=== PATIENT | male | born 1955 | race Caucasian/White ===

== ENCOUNTER → 2018-09-10 | Day surgery (SDC) | payer MEDICARE ==
--- NOTE | 2018-09-09 14:53 | Diagnostic Imaging Report ---
EXAMINATION: CHEST 2 VIEWS INDICATION: Preop. History of asthma. Surgery on ear ^PRE ADMIT COMPARISON: None FINDINGS: TUBES and LINES: None. LUNGS: Likely minimal scarring/atelectasis in the left lower lung. There is no evidence of pneumonia or pulmonary edema. PLEURA: No pleural effusion or pneumothorax. HEART AND MEDIASTINUM: The cardiomediastinal silhouette is unremarkable. BONES AND SOFT TISSUES: No acute osseous lesion. Soft tissues are unremarkable. UPPER ABDOMEN: No free air under the diaphragm. IMPRESSION: Likely minimal scarring/atelectasis in the left lower lung. There is no evidence of pneumonia or pulmonary edema Signed by: Dr. Ricardo Nunez M.D. on 09/09/2018 2:49 PM
[~2018-09-10] MED LIST: DEXAMETHASONE INJ ONE; DEXAMETHASONE SOD PHOS INJ 4 MG/ML VIAL ONE; EPHEDRINE SULFATE INJ 50 MG/10 ML SYR ONE; FENTANYL CITRATE/PF 100MCG/2 ML INJ ONE; FLECAINIDE ACE100 MG PO; HYZAAR 100-12.1 EACH; LEXAPRO10 MG PO; LIDOCAINE HCL 2% LOCAL INJ 5 ML SDV VIAL INJ ONE; ONDANSETRON HCL INJ 2MG/ML 2ML 2 MG/ML VIAL ONE; PRO AIR INHALER; PROCARDIA XL60 MG; PROPOFOL IV EMULSION 10 MG/ML 20 ML VIAL ONE; SEVOFLURANE INHAL SOLN 250 ML PEN BTL ONE; SIMVASTATIN40 MG PO; TRAZADONE HCL PO
--- NOTE | 2018-09-10 05:49 | Pre Op History & Physical ---
DATE OF SURGERY: September 10, 2018. CHIEF COMPLAINT: Right-sided tinnitus with sound distortion with Meniere's disease. HISTORY OF PRESENT ILLNESS: This 63-year-old male has tinnitus bilaterally, worse on the right side with aural fullness. This has been going on for 20 years. The patient has acute flare of his Meniere's disease about 5-6 times a year. The patient claimed that his hearing is down on the right side. He also complained of distortion of sound. 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 The patient has been seen by myself and another otolaryngologists in [place]. He is being treated with diet restriction of salt and also Maxzide with no improvement of the condition. An audiogram that was done in June of this year showed the patient has mild high-frequency sensorineural hearing loss in the left side with moderate sensorineural hearing loss on the right with speech discrimination of 100% bilaterally. The patient had an MRI of the skull base, which show no intracranial abnormality. His IAC was negative. REVIEW OF SYSTEMS: Showed no recent cardiovascular, respiratory, or GI problem. PAST MEDICAL HISTORY: The patient has a history of hypertension. The patient has a history of asthma and cardiac arrhythmias. PAST SURGICAL HISTORY: The patient has previous endoscopic sinus surgery, cholecystectomy, and cardiac ablation. ALLERGIES: HE HAS NO KNOWN ALLERGIES. MEDICATIONS: He is on Pro-Air, Lexapro, trazodone, aspirin, simvastatin, Phenergan, and losartan-HCTZ. SOCIAL HISTORY: He is nonsmoker and social drinker. FAMILY HISTORY: Noncontributory. PHYSICAL EXAMINATION: VITAL SIGNS: On examination, the patient's vital signs were within normal limits. He was seen with his . HEENT: Ear exam showed normal tympanic membrane bilaterally. Nasal exam showed hypertrophy of the inferior turbinates. Oropharynx and oral cavity show no tonsils with Mallampati level 3. NECK: Showed no lymph node or thyroid palpable. CHEST: Showed good air entry bilaterally. CARDIOVASCULAR: Showed S1, S2. No murmur noted. VEHICLE OPERATOR: Showed cranial nerves II-XII were within normal limits. ASSESSMENT AND PLAN: Mr. Mott has right-sided tinnitus with right Meniere's disease with aural fullness. His condition is resistant to conservative therapy. Suggested treatment is myringotomy tubes on the right side with Decadron instillation and other necessary procedure. Complication of procedure includes, but not limited to bleeding, infection, TM perforation, persistent drainage of the ear, hearing loss, and persistent recurrence of the distortion. Alternatives will be continued observation, systemic steroid therapy, and also myringotomy and tubes in the office setting. The patient has elected to undergo surgical procedure. MD OZIEL Toussaint/SWATI /[id number]
--- OUTSIDE RECORDS SUMMARY | 2018-09-10 08:31 | XMS REPORT ---
Author [facility] Address Unknown Phone Unavailable Care Team Providers Care Nuclear Medicine Chief Technologist Name Role Phone Darius GALAN Unavailable Unavailable Mauricio, Ray Unavailable Unavailable Problems This patient has no known problems. Allergies, Adverse Reactions, Alerts This patient has no known allergies or adverse reactions. Medications This patient has no known medications. Encounters Start Date/Time End Date/Time Encounter Type Admission Type Attending Clinicians Care Facility Care Department Encounter ID 2016-11-28 13:59:00 2016-11-28 13:59:00 Outpatient Mauricio, Ray [facility] [id number] 08:36:00 2016-10-19 08:36:00 Outpatient Mauricio, Ray [facility] [id number] Results Test Description Test Time Test Comments Text Results Atomic Results Result Comments CHEST 2 VIEWS 2018-09-09 14:48:00 [place] [address] Patient Name: ANGELA WOODARD MR #: [id number] : 1955 Age/Sex: 63/M Req #: [id number] Adm Physician: Ordered by: LEIGH GALAN MD Report #: [id number] Location: OR Room/Bed: Procedure: [id number] DX/CHEST 2 VIEWS Exam Date: Exam Time: REPORT STATUS: Signed EXAMINATION: CHEST 2 VIEWS INDICATION: Preop. History of asthma. Surgery on ear PRE ADMIT COMPARISON: None FINDINGS: TUBES and LINES: None. LUNGS: Likely minimal scarring/atelectasis in the left lower lung. There is no evidence of pneumonia or pulmonary edema. PLEURA: No pleural effusion or pneumothorax. HEART AND MEDIASTINUM: The cardiomediastinal silhouette is unremarkable. BONES AND SOFT TI SSUES: No acute osseous lesion. Soft tissues are unremarkable. UPPER ABDOMEN: No free air under the diaphragm. IMPRESSION: Likely minimal scarring/atelectasis in the left lower lung. There is no evidence of pneumonia or pulmonary edema Signed by: Dr. Ricardo Nunez M.D. on 09/09/2018 2:49 PM Dictated By: RICARDO NUNEZ MD, MD 1449 Transcribed By: KIMBERLYN on 09/09/18 1449 COPY TO: LEIGH GALAN MD
--- OUTSIDE RECORDS SUMMARY | 2018-09-10 08:31 | XMS REPORT | Clinical Summary ---
Author Author [facility] Address Unknown Phone Unavailable Care Team Providers Care Hvac Lead Name Role Phone Marcelo Osuna MD PCP Allergies No Known Allergies Medications End Date Status Medication Sig Dispensed Refills Start Date Active traZODone (DESYREL) 50 MG 0 tablet 9 Active simvastatin (ZOCOR) 40 MG 0 tablet 9 Active promethazine (PHENERGAN) 0 25 MG tablet 8 Active predniSONE (DELTASONE) 10 0 mg tablet 8 Active LORAZepam (ATIVAN) 0.5 MG 0 tablet 9 Active flecainide (TAMBOCOR) 50 0 MG tablet 8 Active escitalopram (LEXAPRO) 10 0 MG tablet 9 Active amLODIPine (NORVASC) 5 mg 0 tablet 8 Active albuterol (PROAIR Inhale 2 0 HFA,PROVENTIL puffs every 6 HFA,VENTOLIN HFA) 90 (six) hours mcg/actuation inhaler as needed for wheezing. Active losartan (COZAAR) 100 MG Take 100 mg 0 tablet by mouth daily. Active Problems Problem Noted Date Right knee pain 07/19/2018 Encounters Care Team Description Date Type Specialty Aramis Jefferson MD Right knee pain, unspecified chronicity (Primary Dx) 07/19/2018 Office Visit Orthopedic Surgery after 09/09/2017 Social History Date Tobacco Use Types Packs/Day Years Used Never Smoker Smokeless Tobacco: Never Used Alcohol Use Drinks/Week oz/Week Comments Yes occa Sex Assigned at Date Recorded Not on file Industry Job Start Date Occupation Not on file Not on file Not on file Travel End Travel History Travel Start No recent travel history available. Last Filed Vital Signs Time Taken Vital Sign Reading - Blood Pressure - - Pulse - - Temperature - - Respiratory Rate - - Oxygen Saturation - - Inhaled Oxygen - Concentration 07/19/2018 9:37 AM [facility] Weight 98.4 kg (217 lb) 07/19/2018 9:37 AM [facility] Height 167.6 cm (5' 6") 07/19/2018 9:37 AM [facility] Body Mass Index 35.02 Plan of Treatment Health Maintenance Due Date Last Done Comments COLON CANCER SCREENING 08/31/2007 SHINGLES VACCINES (#1) 08/31/2007 INFLUENZA VACCINE 01/02/2019 Procedures Comments Procedure Name Priority Date/Time Associated Diagnosis ESTIMATED GFR Routine 09/04/2018 Sensory hearing loss, 11:31 AM CDT bilateral Chronic maxillary sinusitis Pre-operative laboratory examination [facility] (current) use of anticoagulants PARTIAL THROMBOPLASTIN Routine 09/04/2018 Sensory hearing loss, TIME (PTT) 11:31 AM CDT bilateral Chronic maxillary sinusitis Pre-operative laboratory examination [facility] (current) use of anticoagulants PROTHROMBIN TIME WITH INR Routine 09/04/2018 Sensory hearing loss, 11:31 AM CDT bilateral Chronic maxillary sinusitis 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 (current) use of anticoagulants BASIC METABOLIC PANEL Routine 09/04/2018 Sensory hearing loss, 11:31 AM CDT bilateral Chronic maxillary sinusitis Pre-operative laboratory examination [facility] (current) use of anticoagulants CBC HEMOGRAM Routine 09/04/2018 Sensory hearing loss, 11:31 AM CDT bilateral Chronic maxillary sinusitis 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 Interpretation is based on recommendations of the National Kidney Foundation-Kidney Disease Outcomes Quality Initiative (NKF-KDOQI) published in 2014. Specimen Plasma specimen Performing Organization Address City/State/Zipcode Phone Number [facility] [address] [id number] PATHOLOGY AND GENOMIC MEDICINE [place] [id number] [address] * Partial thromboplastin time, activated (09/04/2018 11:31 AM CDT) PTT 28.0 23.0 - 36.0 sec TIESHA COLLIER Comment: [facility] PTT therapeutic range for unfractionated heparin is 61.0-112.0 seconds which corresponds to Anti-Xa 0.3-0.7 U/ml. Note:Change in Panic Value The PTT Panic Value is changing from 110 sec. to 100 sec. due to new instrumentation and reagents. Correlation studies have been performed to validate this result. Specimen Blood Performing Organization Address City/[facility]/Zipcode Phone Number [facility] [address] [place] [address] PATHOLOGY AND GENOMIC MEDICINE [address] * Prothrombin time with INR (09/04/2018 11:31 AM CDT) Prothrombin time 12.2 11.5 - 14.5 sec TIESHA COLLIER [facility] INR 0.93 TIESHA COLLIER Comment: [facility] For patients on anticoagulant therapy, reference ranges below: Indication: INR Value Treatment of Venous Thrombosis, 2.0-3.0 pulmonary emboli, or prophylaxis of a venous thrombosis, or systemic emboli. High dose, high risk patients 3.0-4.5 with mechanical valves. NOTE:INR values over 3.0 are sometimes associated with gastrointestinal hemorrhage, especially values over 4.0. Specimen Blood Performing Organization Address City/State/Zipcode Phone Number [facility] [address] [place] [address] PATHOLOGY AND GENOMIC MEDICINE [place] [id number] [address] * CBC hemogram (09/04/2018 11:31 AM CDT) WBC 7.5 4.2 - 11.0 k/uL [facility] RBC 5.15 4.04 - 5.86 m/uL [facility] HGB 15.6 13.0 - 17.3 g/dL [facility] HCT 46.6 (H) 34.0 - 45.0 % [facility] MCV 90.5 80.0 - 98.[address] [facility] MCH 30.3 27.0 - 34.[address] [facility] MCHC 33.5 31.5 - 36.5 g/dL [facility] RDW - SD 40.5 37.0 - 51.[address] [facility] MPV 10.2 7.4 - 10.[address] [facility] Platelet count 215 150 - 400 k/uL [facility] Nucleated RBC 0.00 /[address] [facility] Specimen Blood Performing Organization Address City/State/Zipcode Phone Number [facility] DEPART[facility] OF [address] [place] [address] PATHOLOGY AND GENOMIC MEDICINE [place] [address] [address] * Basic metabolic panel (09/04/2018 11:31 AM CDT) Sodium 140 135 - 150 mEq/L [facility] Potassium 4.5 3.5 - 5.0 mEq/L [facility] Chloride 98 98 - 112 mEq/L [facility] CO2 34 (H) 24 - 31 mmol/L [facility] Anion gap 8@ANIO 7 - 15 mEq/L [facility] BUN 14 7 - 18 mg/dL [facility] Creatinine 1.30 (H) 0.70 - 1.20 mg/dL [facility] Glucose 95 65 - 100 mg/dL [facility] Calcium 9.8 8.8 - 10.2 mg/dL [facility] Specimen Plasma specimen Performing Organization Address City/[facility]/Zipcode Phone Number [facility] DEPARTMENT OF [address] [place] [address] PATHOLOGY AND GENOMIC MEDICINE [facility] [address] [place] [address] [facility] * XR Knee 4+ Vw Right (07/19/2018 10:02 AM FISHER) Narrative Performed At [facility] Weightbearing AP and PA x-rays on both knees with a lateral x-ray of the right knee:Normal study Performing Organization Address City/[facility] Phone Number [facility] [address] [place] [address] after 09/09/2017 Insurance Payer Benefit Subscriber ID Type Phone Address Plan / Group MEDICARE MEDICARE xxxxxxxxxxx Medicare [place], [place] PART A AND B Advance Directives Patient has advance care planning documents on file. For more information, rohit brown contact: [facility] [address] [place] [address]
[2018-09-10 12:15] VITALS: BP 121/81
--- NOTE | 2018-09-10 17:08 | Operative Report ---
DATE OF PROCEDURE: 09/10/2018 SURGEON: Iain Garrido MD CHIEF COMPLAINT: Right hearing loss and right Meniere's disease. POSTOPERATIVE DIAGNOSES: Right hearing loss and right Meniere's disease. OPERATIVE PROCEDURES: Myringotomy and tubes in the right ear with Decadron instillation in the right ear and examination under anesthesia on the left. ANESTHESIA: Dr. Cabrera. INDICATIONS: This 63-year-old male has longstanding history of Meniere's disease. The patient has unsteadiness and also decreased hearing with distortion in his ear. The patient has been treated with Maxzide and salt restriction with persistent symptoms. 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 I have discussed with him that steroid injection in the right middle ear literature support for improvement of Meniere's with vertigo. In terms of sound distortion, it may or may not be beneficial; however, the patient wanted to give that a try. It was decided that right myringotomy and tube with Decadron instillation to the right middle ear and examination under anesthesia of the left and other necessary procedures will be beneficial for him. DESCRIPTION OF PROCEDURE: The patient was taken to the operating room and put under general anesthesia. The LMA airway was created. The right ear was examined. Ear canal was debrided. A myringotomy was done in the anterior inferior quadrant. No effusion was noted in right middle ear cleft. The Nixon grommet tube was inserted. The Decadron 24 mg/mL with 1 mL was instilled into the middle ear so that it could go through the round window into the inner ear. The left ear was examined. The ear canal was debrided. No abnormality was noted. TM was not disturbed. The patient tolerated the above procedure well with minimal blood loss. He was able to be transferred to recovery room in stable condition. Iain Garrido MD [facility] /[id number] cc:
== END | disposition home or self-care (01) ==
LOC: OR 08:29
PROVIDERS: ATTEND Otolaryngology Otolaryngology/Facial Plastic Surgery
DX: H81.01 Meniere's disease, right ear (principal); H93.11 Tinnitus, right ear; H90.3 Sensorineural hearing loss, bilateral; R47.89 Other speech disturbances; J45.909 Unspecified asthma, uncomplicated; G47.33 Obstructive sleep apnea (adult) (pediatric); I12.9 Hypertensive chronic kidney disease with stage 1 through stage 4 chronic kidney disease, or unspecified chronic kidney disease; N18.9 Chronic kidney disease, unspecified; Z88.6 Allergy status to analgesic agent; Z01.810 Encounter for preprocedural cardiovascular examination; Z01.818 Encounter for other preprocedural examination; Z79.82 Long term (current) use of aspirin
CPT/HCPCS: 69436; 69399; 71046; 93005; J1100 ×2; J2001; J2405; J2704